=== PATIENT | male | born 1970 | race Hispanic/Latino ===

== ENCOUNTER 2021-02-21 12:50 | Emergency (ER) | payer SELFPAY ==
[~2021-02-21] VITALS: Ht 180.3 cm; Wt 136.6 kg
[2021-02-21] MEDS ORDERED: AUGMENTIN 875-1 EACH PO (13:13)
== END 2021-02-21 13:27 | disposition home or self-care (01) ==
LOC: FSED 13:03
DX: H66.91 Otitis media, unspecified, right ear (principal); Z88.8 Allergy status to other drugs, medicaments and biological substances
CPT/HCPCS: 99282